=== PATIENT | female | born 1995 | race Caucasian/White ===

== ENCOUNTER 2018-02-24 16:07 | Outpatient (CLI) | END 2018-02-24 16:08 | disposition home or self-care (01) | LOC: RHC-LAB 16:07 | PROVIDERS: ATTEND Nurse Practitioner Family | DX: Z00.00 Encounter for general adult medical examination without abnormal findings (principal); I10 Essential (primary) hypertension; E03.9 Hypothyroidism, unspecified | CPT/HCPCS: 36415; 80053; 80061; 84443; 85025 ==

== ENCOUNTER 2018-02-25 13:21 | Outpatient (CLI) | END 2018-02-25 13:22 | disposition home or self-care (01) | LOC: CAR 13:21 | PROVIDERS: ATTEND Nurse Practitioner Family | DX: R00.0 Tachycardia, unspecified (principal) | CPT/HCPCS: 93005; 93010 ==

== ENCOUNTER 2018-03-31 09:21 | Outpatient (CLI) | END 2018-03-31 09:22 | disposition home or self-care (01) | LOC: RHC-LAB 09:21 | PROVIDERS: ATTEND Nurse Practitioner Family | DX: E78.5 Hyperlipidemia, unspecified (principal); E03.9 Hypothyroidism, unspecified; R79.89 Other specified abnormal findings of blood chemistry | CPT/HCPCS: 36415; 80053; 80061; 84443 ==

== ENCOUNTER 2018-04-09 12:48 | Outpatient (CLI) ==
--- NOTE | 2018-04-10 15:48 | HOLTER ---
PATIENT INFORMATION AND COMMENTS Attending Physician: MARYLOU EDWARDS APRN Indications: PALPITATIONS, TACHYCARDIA __ Patient Medications: LEVOXYL, LOSARTAN, HCTZ, SERTRALINE, LOVASTATIN, ZANTAC, VISTARIL, TRAZADONE __ Pre-procedure Summary: Protocol: Standard Heart Rate Started: 04/09/187 Minimum: 52 BPM Weight: 200 LBS Ended: 04/10/187 Maximum: 136 BPM Height: 60" Duration: 24 HOURS Average: 76 BPM _ INTERPRETATIONS/OBSERVATIONS: 1. BASIC RHYTHM-SINUS, RATE 50 BPM TO 135 BPM, AVERAGE 76 BPM 2. RARE ISOLATED PAC/ PVC'S 3. NO TACHY ARRHYTHMIAS 4. NO ST-T WAVE CHANGES FROM BASELINE 5. NO CORRELATION WITH PATIENTS SYMPTOMS OF DIZZINESS WITH RHYTHM STRIPS MTDD
== END 2018-04-09 12:49 | disposition home or self-care (01) ==
LOC: CAR 12:48
PROVIDERS: ATTEND Nurse Practitioner Family
DX: R00.2 Palpitations (principal); R00.0 Tachycardia, unspecified
CPT/HCPCS: 93227

== ENCOUNTER 2018-09-18 17:25 | Outpatient (CLI) | END 2018-09-18 17:26 | disposition home or self-care (01) | LOC: LAB 17:25 | PROVIDERS: ATTEND Nurse Practitioner Family | DX: E03.9 Hypothyroidism, unspecified (principal) | CPT/HCPCS: 36415; 84443 ==